=== PATIENT | female | born 2000 | race Caucasian/White ===

== ENCOUNTER 2019-03-29 18:48 | Inpatient (IN) | payer BC ==
[~2019-03-29] VITALS: Ht 160 cm; Wt 81.0 kg
[2019-03-29 19:27] VITALS: BP 101/50; PULSE 84; RESP 20
[2019-03-29] MEDS ORDERED: ACETAMINOPHEN 325 MG TAB PO PRN (20:00)
[2019-03-29] MEDS ORDERED: NACL 0.9% 3 ML SYG IV SCH (20:00)
[2019-03-29] MEDS ORDERED: BISACODYL (EC) 5 MG TAB PO PRN (20:00)
[2019-03-29] MEDS ORDERED: DOCUSATE SODIUM 100 MG CAP PO PRN (20:00)
[2019-03-29] MEDS ORDERED: ONDANSETRON 4 MG INJ IV PRN (20:00)
--- NOTE | 2019-03-29 20:08 | HP ---
Date/Time of Note Date/Time of Note DATE: 03/29/19 TIME: 20:08 Assessment/Plan VTE Prophylaxis SCD applied (from Ns): Yes Pharmacological prophylaxis: NA/contraindicated Pharm contraindication: low risk/ambulating Assessment/Plan Hospital Course This is a 19-year-old female who was originally admitted to the telemetry floor [facility]: #1 choledocholithiasis: Patient has transaminitis with hyperbilirubinemia. We will keep the patient n.p.o. except meds. IV fluid hydration with normal saline. Prophylactic antibiotics of Zosyn as ultrasound was concerning for possible cholecystitis. MRCP. Will consult GI . We will also consult general surgery . #2 abnormal gallbladder ultrasound: Concerning for possible cholecystitis. Patient is afebrile and has a normal white blood cell count. Nonetheless will put the patient on prophylactic antibiotics Zosyn. Will obtain an MRCP. Will consult general surgery. #3 obesity: We will check hemoglobin A 1C, lipid panel, TSH. #4 history of heartburn: We will initiate the patient on Pepcid #5 DVT GI prophylaxis: SCDs, no GI prophylaxis indicated Further treatment strategy will be implemented as per the clinical course. HPI/ROS Admit Date/Time Admit Date/Time Mar 29, 2019 at 19:06 Hx of Present Illness Chief complaint: Abdominal pain This is a 19-year-old female with no past medical history who presented to [facility] with complaints of epigastric pain for 2 weeks. Patient reported the pain was in the epigastric region and nonradiating and it was worsened by eating. She does report that she ate a lot of spicy food. She does report episodes of heartburn. She denies any nausea vomiting or fevers diarrhea. Patient's vitals on presentation at the transfer facility showed a temperature of 36.7 C heart rate of 102 blood pressure 116/89 respirations 18 SPO2 98% on room air. Pertinent laboratory findings please see chart for full details: White blood cell 6.8 hemoglobin 12.9 hematocrit 39.1 platelet count 295 BMP showed sodium 138/potassium 4/chloride 105/CO2 24/glucose 96/creatinine 0.69 bili total 3.4 ALT 377 AST 135 alk phos 126 lipase 32 beta-hCG was negative Right upper quadrant ultrasound: Cholelithiasis with mild dilatation of the common bile duct with a positive sonographic Berg sign reported. Constellation of findings frequently associated with acute cholecystitis. Allergies: NKDA Medications: None ROS const: As per HPI Eyes : No pain discharge or redness or change in visual acuity ENT: No pain, sore throat, congestion, congestion, dysphagia or discharge Respiratory: No shortness of breath, cough, sputum, wheezing, or pleuritic pain Cardiovascular: No chest pain, palpitation, PND, or edema GI : As per HPI Genitourinary: No dysuria, hematuria, flank pain , discharge or CVA tenderness Musculoskeletal: No joint pain, back pain, neck pain, restricted range of motion in neck or joints Skin: No rash, bruising or hives Neuro: No headache, dizziness, syncope, seizure, focal weakness Endocrine: No polyuria, polydipsia, temperature intolerance Psych: No hallucination, depression, anxiety or suicidal ideation PMH/Family/Social Past Medical History Medical History: no pertinent history Coded Allergies: No Known Allergies (Verified Allergy, Unknown, 03/29/19) Past Surgical History Past Surgical Hx: no surgical history Family History Significant Family History: no pertinent family hx Social History Alcohol Use: occasionally Smoking Status: Never smoker Exam/Review of Systems Vital Signs Vitals Vital Signs Date Temp Pulse Resp B/P (MAP) Pulse Ox O2 O2 Flow FiO2 Time Delivery Rate 03/29/19 98.3 84 20 101/50 100 Room Air 19:27 (67) Exam Exam General: Patient is a pleasant female currently lying in bed in no acute distress HEENT: Atraumatic, normocephalic. The pupils are equal, round and reactive. Extraocular motor are intact Neck: Supple with full range of motion. No rigidity or meningismus Chest: Nontender Lungs: Clear to auscultation bilaterally no crackles rales or wheezing Heart: Normal S1-S2, Regular rhythm and rate. No murmur, S3, or S4 Abdomen: Obese, soft , mildly tender at the epigastric region, nondistended , bowel sounds are present. No guarding no rebound tenderness , No masses or organomegaly. No costovertebral temporal angle mass Extremities: Normal to inspection, no edema no cyanosis Neurologic: Normal mental status, speech normal, cranial nerves II through XII are intact, motor and sensory are intact, no focal weakness CHAYA MANJARREZ Mar 29, 2019 20:08
[2019-03-29 20:18] VITALS: Ht 160 cm; Wt 81.0 kg
[2019-03-29] MEDS: HYDROmorphONE 0.5 MG/0.5 ML SYG IV PRN (21:04)
[2019-03-29] MEDS: PIPER-TAZO 3.375 GM IV (PMX) 100 ML IVPB SCH (21:17)
[2019-03-29] MEDS: SOD CHLORIDE 0.9% 1,000 ML IV SCH (21:17)
[2019-03-30] VITALS (17 sets, daily range): BP systolic 99–121; BP diastolic 50–70; PULSE 52–108; RESP 15–23
[2019-03-30] MEDS: PIPER-TAZO 3.375 GM IV (PMX) 100 ML IVPB SCH ×4 (01:30→18:24)
[2019-03-30] MEDS: HYDROmorphONE 0.5 MG/0.5 ML SYG IV PRN ×3 (02:42→20:00)
[2019-03-30] MEDS: SOD CHLORIDE 0.9% 1,000 ML IV SCH ×2 (07:00→12:21)
[2019-03-30] MEDS: FAMOTIDINE 20 MG TAB PO SCH ×2 (09:08→20:00)
--- NOTE | 2019-03-30 11:29 | PN ---
Date/Time of Note Date/Time of Note DATE: 03/30/19 TIME: 11:28 Assessment/Plan VTE Prophylaxis Risk score (from Nsg)>0 risk: 0 SCD applied (from Nsg): Yes Pharmacological prophylaxis: NA/contraindicated Pharm contraindication: low risk/ambulating Lines/Catheters IV Catheter Type (from Nrsg): Saline Lock Assessment/Plan Hospital Course SUBJECTIVE: Continues to have some abdominal pain. OBJECTIVE: Physical Exam General: Obese, 19 year-old female lying in bed in no apparent distress. HEENT: Normocephalic, atraumatic. Eyes: Anicteric sclerae, conjunctivae clear. ENT: Nasal septum midline, oral mucosa is dry. Neck supple, no JVD noticed. Respiratory: Bilaterally clear breath sounds. No use of accessory muscles of respiration. No adventitious breath sounds. Cardiovascular: S1, S2 heard. Regular rate and rhythm. Abdomen: Soft, nontender, and nondistended. Bowel sounds positive in all 4 quadrants. Genitourinary: Deferred. Extremities: No cyanosis, no clubbing, no edema. Peripheral pulses palpable. Neurologic: Cranial nerves II through XII grossly intact. The patient is awake, alert, and oriented. Skin: Normal skin turgor. No skin rashes. Labs & Vitals per chart ASSESSMENT & PLAN 19-year-old female with no significant comorbidities other than obesity who presented to an outside facility with chief complaint of abdominal pain with evidence of cholelithiasis and was transferred to [facility] for further treatment and evaluation because of insurance reasons. 1. Symptomatic cholelithiasis; choledocholithiasis per MRCP. Continue pain control. Continue n.p.o. Await ERCP. Antibiotics for any underlying infectious process. 2. Transaminitis w/o hyperbilirubinemia. Management as per #1. 3. Obesity. BMI more than 31kg/m. Fasting lipid panel satisfactory. Hemoglobin A1c within normal limits. Counselling for lifestyle modification. 4. Fluids, electrolytes, and nutrition. N.p.o. except for medications. IV fluids. 5. DVT prophylaxis. Bilateral SCDs. 6. Plan. Continue pain control. Await ERCP. Await surgical evaluation. The patient was seen in collaboration with Dr. Munguia. Result Diagram: 03/30/19 0615 03/30/19 0615 Results 24hrs Laboratory Tests Test 03/29/19 23:27 03/30/19 06:15 03/30/19 06:48 White Blood Count 7.1 7.2 Red Blood Count 4.29 4.62 Hemoglobin 11.3 L 12.0 Hematocrit 35.0 L 38.7 Mean Corpuscular Volume 81.6 83.8 Mean Corpuscular Hemoglobin 26.3 L 26.0 L Mean Corpuscular Hemoglobin Concent 32.3 31.0 L Red Cell Distribution Width 14.9 H 15.1 H Platelet Count 276 299 Mean Platelet Volume 10.8 H 11.1 H Immature Granulocytes % 0.300 0.300 Neutrophils % 55.8 55.1 Lymphocytes % 29.5 30.5 Monocytes % 10.2 10.2 Eosinophils % 3.5 3.2 Basophils % 0.7 0.7 Nucleated Red Blood Cells % 0.0 0.0 Immature Granulocytes # 0.020 0.020 Neutrophils # 3.9 4.0 Lymphocytes # 2.1 2.2 Monocytes # 0.7 0.7 Eosinophils # 0.3 0.2 Basophils # 0.1 0.1 Nucleated Red Blood Cells # 0.0 0.0 Sodium Level 142 142 Potassium Level 3.6 4.0 Chloride Level 106 108 Carbon Dioxide Level 26 27 Anion Gap 10 7 Blood Urea Nitrogen 5 L 6 L Creatinine 0.65 0.72 Est Glomerular Filtrat Rate mL/min > 60 > 60 Glucose Level 104 93 Calcium Level 8.4 8.6 Total Bilirubin 1.2 1.0 Direct Bilirubin 0.30 H 0.20 Indirect Bilirubin 0.9 0.8 Aspartate Amino Transf (AST/SGOT) 102 H 88 H Alanine Aminotransferase (ALT/SGPT) 327 H 297 H Alkaline Phosphatase 111 107 Total Protein 6.9 6.2 Albumin 3.6 3.5 Globulin 3.30 H 2.70 Albumin/Globulin Ratio 1.09 1.29 Hemoglobin A1c 5.1 Triglycerides Level 67 Cholesterol Level 140 LDL Cholesterol, Calculated 81 HDL Cholesterol 46 Cholesterol/HDL Ratio 3.0 Thyroid Stimulating Hormone (TSH) 1.690 Prothrombin Time 13.1 Prothrombin Time Ratio 1.0 INR International Normalized Ratio 0.98 Activated Partial Thromboplast Time 28.8 Exam/Review of Systems Exam Vitals Vital Signs Date Temp Pulse Resp B/P (MAP) Pulse Ox O2 O2 Flow FiO2 Time Delivery Rate 03/30/19 97.3 52 18 104/55 99 07:34 (71) 03/30/19 Room Air 04:21 Intake and Output 03/29/19 03/29/19 03/30/19 1515:00 23:00 07:00 IntakeIntake Total 800 ml 1100 ml BalanceBalance 800 ml 1100 ml Results Results 24hrs Laboratory Tests Test 03/29/19 23:27 03/30/19 06:15 03/30/19 06:48 White Blood Count 7.1 7.2 Red Blood Count 4.29 4.62 Hemoglobin 11.3 L 12.0 Hematocrit 35.0 L 38.7 Mean Corpuscular Volume 81.6 83.8 Mean Corpuscular Hemoglobin 26.3 L 26.0 L Mean Corpuscular Hemoglobin Concent 32.3 31.0 L Red Cell Distribution Width 14.9 H 15.1 H Platelet Count 276 299 Mean Platelet Volume 10.8 H 11.1 H Immature Granulocytes % 0.300 0.300 Neutrophils % 55.8 55.1 Lymphocytes % 29.5 30.5 Monocytes % 10.2 10.2 Eosinophils % 3.5 3.2 Basophils % 0.7 0.7 Nucleated Red Blood Cells % 0.0 0.0 Immature Granulocytes # 0.020 0.020 Neutrophils # 3.9 4.0 Lymphocytes # 2.1 2.2 Monocytes # 0.7 0.7 Eosinophils # 0.3 0.2 Basophils # 0.1 0.1 Nucleated Red Blood Cells # 0.0 0.0 Sodium Level 142 142 Potassium Level 3.6 4.0 Chloride Level 106 108 Carbon Dioxide Level 26 27 Anion Gap 10 7 Blood Urea Nitrogen 5 L 6 L Creatinine 0.65 0.72 Est Glomerular Filtrat Rate mL/min > 60 > 60 Glucose Level 104 93 Calcium Level 8.4 8.6 Total Bilirubin 1.2 1.0 Direct Bilirubin 0.30 H 0.20 Indirect Bilirubin 0.9 0.8 Aspartate Amino Transf (AST/SGOT) 102 H 88 H Alanine Aminotransferase (ALT/SGPT) 327 H 297 H Alkaline Phosphatase 111 107 Total Protein 6.9 6.2 Albumin 3.6 3.5 Globulin 3.30 H 2.70 Albumin/Globulin Ratio 1.09 1.29 Hemoglobin A1c 5.1 Triglycerides Level 67 Cholesterol Level 140 LDL Cholesterol, Calculated 81 HDL Cholesterol 46 Cholesterol/HDL Ratio 3.0 Thyroid Stimulating Hormone (TSH) 1.690 Prothrombin Time 13.1 Prothrombin Time Ratio 1.0 INR International Normalized Ratio 0.98 Activated Partial Thromboplast Time 28.8 Medications Medication Current Medications Sodium Chloride 1,000 ml @ 100 mls/hr Q10H IV Last administered on 03/29/19at 21:17; Admin Dose 100 MLS/HR; Start 03/29/19 at 21:00 IV Flush (NS 3 ml) 3 ml PER PROTOCOL IV ; Start 03/29/19 at 20:00 Ondansetron HCl (Zofran Inj) 4 mg Q6H PRN IV NAUSEA/VOMITING; Start 03/29/19 at 20:00 Acetaminophen (Tylenol Tab) 650 mg Q6H PRN PO .PAIN 1-3 OR TEMP; Start 03/29/19 at 20:00 Hydromorphone HCl (Dilaudid) 0.5 mg Q4H PRN IV .SEVERE PAIN 7-10 Last adm inistered on 03/30/19at 09:11; Admin Dose 0.5 MG; Start 03/29/19 at 20:00 Docusate Sodium (Colace) 100 mg Q12H PRN PO .CONSTIPATION; Start 03/29/19 at 20:00 Bisacodyl (Dulcolax) 5 mg DAILY PRN PO .CONSTIPATION; Start 03/29/19 at 20:00 Piperacillin Sod/ Tazobactam Sod 100 ml @ 200 mls/hr Q6 IVPB Last administered on 03/30/19at 05:37; Admin Dose 200 MLS/HR; Start 03/29/19 at 21:00 Famotidine (Pepcid) 20 mg BID PO Last administered on 03/30/19at 09:08; Admin Dose 20 MG; Start 03/30/19 at 09:00 RENNY KOWALSKI NP Mar 30, 2019 11:29
[2019-03-30] MEDS ORDERED: INDOMETHACIN 50 MG SUPP PR ONE (15:00)
--- NOTE | 2019-03-30 15:27 | PREAC ---
Date/Time of Note Date/Time of Note DATE: 03/30/19 TIME: 15: Anesthesia Eval and Record Evaluation Time Pre-Procedure Interview DATE: 03/30/19 TIME: 15: Age 19 Sex female NPO: 8 hrs Preoperative diagnosis CBD stone Planned procedure ERCP Past Medical History Past Medical History: Includes GI: Obesity Surgery & Anesthesia Issues No known issue Meds Anticoagulation: No Beta Luisa within 24 hr: No Reason Beta Luisa not given: Pt. not on B-Luisa Current Medications Sodium Chloride 1,000 ml @ 100 mls/hr Q10H IV Last administered on 03/30/19at 12:21; Admin Dose 100 MLS/HR; Start 03/29/19 at 21:00 IV Flush (NS 3 ml) 3 ml PER PROTOCOL IV ; Start 03/29/19 at 20:00 Ondansetron HCl (Zofran Inj) 4 mg Q6H PRN IV NAUSEA/VOMITING; Start 03/29/19 at 20:00 Acetaminophen (Tylenol Tab) 650 mg Q6H PRN PO .PAIN 1-3 OR TEMP; Start 03/29/19 at 20:00 Hydromorphone HCl (Dilaudid) 0.5 mg Q4H PRN IV .SEVERE PAIN 7-10 Last adminis tered on 03/30/19at 09:11; Admin Dose 0.5 MG; Start 03/29/19 at 20:00 Docusate Sodium (Colace) 100 mg Q12H PRN PO .CONSTIPATION; Start 03/29/19 at 20:00 Bisacodyl (Dulcolax) 5 mg DAILY PRN PO .CONSTIPATION; Start 03/29/19 at 20:00 Piperacillin Sod/ Tazobactam Sod 100 ml @ 200 mls/hr Q6 IVPB Last administered on 03/30/19at 12:21; Admin Dose 200 MLS/HR; Start 03/29/19 at 21:00 Famotidine (Pepcid) 20 mg BID PO Last administered on 03/30/19at 09:08; Admin Dose 20 MG; Start 03/30/19 at 09:00 Meds reviewed: Yes Allergies Coded Allergies: No Known Allergies (Verified Allergy, Unknown, 03/29/19) Allergies Reviewed: Yes Labs/Studies Labs Reviewed: Reviewed by anesthesiologist Result Diagram: 03/30/1915 03/30/19 0615 Laboratory Tests 03/30/19 06:15 test: Negative Pre-procedure Exam Last vitals Vital Signs Date Temp Pulse Resp B/P (MAP) Pulse Ox O2 O2 Flow FiO2 Time Delivery Rate 03/30/19 97.5 63 16 102/50 97 12:29 (67) 03/30/19 Room Air 04:21 Airway: Adequate mouth opening Mallampati: Mallampati II Teeth: Normal Lung: Normal Heart: Normal ASA Physical Status ASA physical status: 2 Emergency: None Planned Anesthetic General/MAC: ETT Planned Pain Management Parenteral pain med Pre-operative Attestations Prior to commencing anesthesia and surgery, the patient was re-evaluated, there was verification of: *The patient's identity *The results of appropriate recent lab work and preoperative vital signs *The above evaluation not changing prior to induction *Anesthetic plan, risk benefits, alternative and complications discussed with patient/family; questions answered; patient/family understands, accepts and wishes to proceed. YO HENRY MD Mar 30, 2019 15:27
[2019-03-30] MEDS ORDERED: NEOSTIGMINE 3 MG/3 ML SYRINGE ONE (15:34)
[2019-03-30] MEDS ORDERED: LIDOCAINE 2% (SDV) 5 ML INJ ONE (15:34)
[2019-03-30] MEDS ORDERED: GLYCOPYRROLATE 0.4 MG INJ ONE (15:34)
[2019-03-30] MEDS ORDERED: ROCURONIUM 50 MG INJ ONE (15:34)
[2019-03-30] MEDS ORDERED: SUCCINYLCHOLINE CHLORIDE 100 MG/5 ML SYG IV ONE (15:34)
[2019-03-30] MEDS ORDERED: PROPOFOL 20 ML ONE (15:34)
[2019-03-30] MEDS ORDERED: GLUCAGON 1 MG INJ ONE (16:15)
[2019-03-30] MEDS ORDERED: EPINEPHrine 0.1 MG/ML SYG ONE (16:26)
[2019-03-30] MEDS ORDERED: MEPERIDINE 25 MG INJ IV PRN (16:30)
[2019-03-30] MEDS ORDERED: METOCLOPRAMIDE 10 MG INJ IV PRN (16:30)
[2019-03-30] MEDS ORDERED: DIPHENHYDRAMINE 50 MG INJ IV PRN (16:30)
[2019-03-30] MEDS ORDERED: HYDROmorphONE 1 MG/5 ML IV SYRINGE IV PRN ×3 (16:30)
[2019-03-30] MEDS ORDERED: ONDANSETRON 4 MG INJ IV PRN (16:30)
[2019-03-30] MEDS ORDERED: MIDAZOLAM 1 MG/ML 2 ML INJ IV PRN (16:30)
[2019-03-30] MEDS ORDERED: FENTAnyl 50 MCG/ML VIAL IV PRN ×3 (16:30)
[2019-03-31] VITALS (13 sets, daily range): BP systolic 92–105; BP diastolic 48–68; PULSE 58–105; RESP 16–21
[2019-03-31] MEDS: PIPER-TAZO 3.375 GM IV (PMX) 100 ML IVPB SCH ×5 (00:26→23:47)
--- NOTE | 2019-03-31 01:44 | CONS ---
DATE OF ADMISSION: 03/29/2019 DATE OF CONSULTATION: 03/30/2019 HISTORY OF PRESENT ILLNESS: The patient is a 19-year-old female who was transferred from [facility] for abdominal pain and possible gallstone. At [facility], her bilirubin was 3.4. The patient also had abnormal LFT. The pain has been going on for the last 2 weeks, radiating to the back and shoulder. She was nauseous, no vomiting, no fever, no chills. Ultrasound showed a gallsto ne with dilated bile duct. REVIEW OF SYSTEM: Negative. ALLERGIES: NONE. SOCIAL HISTORY: She does not smoke or drink. PHYSICAL EXAMINATION: GENERAL: Well-built, well-nourished, not in distress. VITAL SIGNS: Stable. HEENT: Unremarkable. NECK: Supple, no thyromegaly, no lymphadenopathy. CARDIOVASCULAR: No murmur, gallop or click. LUNGS: Clear. ABDOMEN: Soft. Tenderness in the right upper quadrant. Bowel sounds are good. No mass in upper ab domen. EXTREMITIES: No edema. CENTRAL NERVOUS SYSTEM: Grossly within normal limits. LABORATORY DATA: INR is normal. CBC is stable. The patient's bilirubin is 1.2 to 1. Alkaline phos phatase is 111 to 107, SGOT and SGPT 102 and 327. MRCP showed a stone in the distal part of the bile duct with dilatation of the biliary system. IMPRESSION: 1. Biliary obstruction. 2. Abnormal LFT. 3. Gallstone. PLAN: Proceed with ERCP. All the complications of the procedure explained to the patient, understoo d and agreed. Mother also was by the side of the patient. Continue antibiotics in the interim. Dictated By: KENNY COOLEY/DANIAL Conf#: [id number] DID#: [id number] CC: YANE MOYA MD; KENNY AGUIRRE MD;*EndCC*
--- NOTE | 2019-03-31 02:29 | GILP ---
DATE OF PROCEDURE: PROCEDURE: 1. ERCP. 2. Sphincterotomy. 3. Removal of stone. 4. Injection of epinephrine. 5. Placement of stent. INDICATION: A 19-year-old female undergoing this procedure for impacted stone in ampulla. Bilirubin was high, started coming down after giving her antibiotic, continues to have right upper quadrant co licky pain. MRCP showed a stone in the ampullary area. The risk of the procedure, related and unrel ated complications, anesthetic risks, alternatives discussed. Informed consent was obtained. PROCEDURE IN DETAIL: Patient was brought to the OR room #2, intubated, placed in a prone position. Indocin suppository was given. After optimal sedation, the ERCP scope passed with much ease into the esophagus, advanced further down into stomach and duodenum. Minor ampulla identified, which appeare d normal. Major ampulla definitely had an impacted stone. Initially tried to selectively cannulate the bile duct, but deeper wire cannulation was not possible due to the impacted stone, so we did a pr ecut sphincterotomy. After doing precut sphincterotomy, deeper cannulation was successful. Cholangi ogram was obtained. There appeared to be 1 floating stone. Large sphincterotomy done. After doing sphincterotomy, a 12 mm balloon was used to sweep the bile duct. A cholesterol stone came out. Bile duct was swept 5 times. She had good flow biliary juice established and on the 6th the time when I did balloon sweeping it started oozing from the superior margin of the sphincterotomy site. So we ob served it. Bleeding had stopped, it was not significant. We sprayed it with 1:200,000 epinephrine. It really blanched out. No further bleeding was seen, deployed, a 10-Czech 5 cm stent successfully and after that excellent drainage was established. There was no dye left behind in the biliary syst em. No further bleeding was noted. Good tamponade was achieved with a 10-Czech 5 cm stent. Scope was removed with excellent patient tolerance. IMPRESSION: 1. Impacted stone in ampulla. 2. Precut sphincterotomy done. After that, selective biliary cannulation obtained. Larger sphincte rotomy done. 3. Cholesterol stone was removed. 4. There was minimal oozing. Successful hemostasis achieved with epinephrine spray. 5. Stent, 10-Czech 5 cm, successfully deployed. Absolute no bleeding was seen. Excellent drainage established. 6. Total fluoro time was 6 seconds. PLAN: To monitor LFT, CBC. Patient definitely needs laparoscopic cholecystectomy. Dictated By: KENNY COOLEY/DANIAL Conf#: [id number] DID#: [id number] CC: YANE MOYA MD; CHAYA MANJARREZ MD;*End*
[2019-03-31] MEDS: SOD CHLORIDE 0.9% 1,000 ML IV SCH (03:15)
[2019-03-31] MEDS: HYDROmorphONE 0.5 MG/0.5 ML SYG IV PRN ×5 (04:02→23:51)
[2019-03-31] MEDS: FAMOTIDINE 20 MG TAB PO SCH ×2 (08:38→19:53)
--- NOTE | 2019-03-31 08:50 | PAC ---
Date/Time of Note Date/Time of Note DATE: 03/31/19 TIME: 08:49 Post-Anesthesia Notes Post-Anesthesia Note Last documented vital signs Vital Signs Date Temp Pulse Resp B/P (MAP) Pulse Ox O2 O2 Flow FiO2 Time Delivery Rate 03/31/19 97.4 58 18 99/57 (71) 98 Room Air 07:30 Activity: WNL Respiratory function: WNL Cardiovascular function: WNL Mental status: Baseline Pain reasonably controlled: Yes Hydration appropriate: Yes Nausea/Vomiting absent: Yes YO HENRY MD Mar 31, 2019 08:49
[2019-03-31] MEDS ORDERED: MAGNESIUM SULFATE 2 GM/50 ML 50 ML IVPB ONE (10:30)
--- NOTE | 2019-03-31 12:51 | PREAC ---
Date/Time of Note Date/Time of Note DATE: 03/31/19 TIME: 12:48 Anesthesia Eval and Record Evaluation Time Pre-Procedure Interview DATE: 03/31/19 TIME: 12:48 Age 19 Sex female NPO: Other (at 0930 today, had one "small bite of jello," one cup cranberry jui ce, and one cup mint tea, Dr Joanne charlton ) Preoperative diagnosis choledocholelithiasis Planned procedure laparoscopic possible open cholecystectomy Past Medical History Past Medical History: Includes Hepatic: Other (abnormal LFTs) GI: GERD (no symptoms today), Obesity (BMI 31.6), Other (gallstones, biliary obstrution s/p ERCP 03/30/19) Surgery & Anesthesia Issues No known issue Meds Anticoagulation: No Beta Luisa within 24 hr: No Reason Beta Luisa not given: Pt. not on B-Luisa Current Medications Sodium Chloride 1,000 ml @ 100 mls/hr Q10H IV Last administered on 03/31/19at 03:15; Admin Dose 100 MLS/HR; Start 03/29/19 at 21:00 IV Flush (NS 3 ml) 3 ml PER PROTOCOL IV ; Start 03/29/19 at 20:00 Ondansetron HCl (Zofran Inj) 4 mg Q6H PRN IV NAUSEA/VOMITING; Start 03/29/19 at 20:00 Acetaminophen (Tylenol Tab) 650 mg Q6H PRN PO .PAIN 1-3 OR TEMP; Start 03/29/19 at 20:00 Hydromorphone HCl (Dilaudid) 0.5 mg Q4H PRN IV .SEVERE PAIN 7-10 Last administered on 03/31/19at 08:39; Admin Dose 0.5 MG; Start 03/29/19 at 20:00 Docusate Sodium (Colace) 100 mg Q12H PRN PO .CONSTIPATION; Start 03/29/19 at 20:00 Bisacodyl (Dulcolax) 5 mg DAILY PRN PO .CONSTIPATION; Start 03/29/19 at 20:00 Piperacillin Sod/ Tazobactam Sod 100 ml @ 200 mls/hr Q6 IVPB Last administered on 03/31/19at 05:46; Admin Dose 200 MLS/HR; Start 03/29/19 at 21:00 Famotidine (Pepcid) 20 mg BID PO Last administered on 03/31/19at 08:38; Admin Dose 20 MG; Start 03/30/19 at 09:00 Meds reviewed: Yes Allergies Coded Allergies: No Known Allergies (Verified Allergy, Unknown, 03/29/19) Allergies Reviewed: Yes Labs/Studies Labs Reviewed: Reviewed by anesthesiologist Result Diagram: 03/31/19 0639 03/31/19 0639 Laboratory Tests 03/31/19 06:39 test: Negative (03/29/19 HCG NEGATIVE, REVIEWED from Transfer documents from [facility] ) Pre-procedure Exam Last vitals Vital Signs Date Temp Pulse Resp B/P (MAP) Pulse Ox O2 O2 Flow FiO2 Time Delivery Rate 03/31/19 97.4 58 18 99/57 (71) 98 Room Air 07:30 Airway: Adequate mouth opening, Adequate thyromental dist Mallampati: Mallampati II Teeth: Normal Lung: Normal Heart: Normal ASA Physical Status ASA physical status: 2 Emergency: E Planned Anesthetic General/MAC: ETT Nerve block: TAP (bilateral) Planned Pain Management Single shot nerve block, Parenteral pain med, Local by surgeon Pre-operative Attestations Prior to commencing anesthesia and surgery, the patient was re-evaluated, there was verification of: *The patient's identity *The results of appropriate recent lab work and preoperative vital signs *The above evaluation not changing prior to induction *Anesthetic plan, risk benefits, alternative and complications discussed with patient/family; questions answered; patient/family understands, accepts and wishes to proceed. JOSE DE JESUS BENSON Mar 31, 2019 12:51
[2019-03-31] MEDS ORDERED: LIDOCAINE 1% (MPF) 30 ML INJ ONE (13:41)
[2019-03-31] MEDS ORDERED: BUPIVACAINE 0.5%/EPI (SDV) 30 ML INJ ONE (13:41)
--- NOTE | 2019-03-31 14:27 | CONS ---
Assessment/Plan Assessment/Plan Assessment/Plan (Daily) Symptomatic cholelithiasis and choledocholithiasis. Status post ERCP. Patient needs laparoscopic cholecystectomy to prevent further attack of choledocholithiasis.We discussed risks and benefits were discussed possible side effects, possible complications including but not limited to bleeding, infe ction, injury to other organs, anesthesia complication, patient understood risk and benefits and wished to proceed. Consultation Date/Type/Reason Admit Date/Time Mar 29, 2019 at 19:06 Date of Consultation: Mar 31, 2019 Type of Consult Surgical Reason for Consultation Gallstones Date/Time of Note DATE: 03/31/19 TIME: 14:24 Hx of Present Illness 19-year-old otherwise healthy female presented to emergency room complaining of epigastric pain radiating to her back. She had a previous attack similar to this 1 but less severe approximately 2 weeks ago. She did not seek any medical attention for that. In the emergency room she was diagnosed with a gallstone at dilated bile ducts. MRCP was performed that showed shadow in the distal common bile duct. Her LFTs were mildly elevated. She underwent ERCP yesterday with stone extraction. The surgical consultation was requested regarding the necessity of cholecystectomy. Constitutional: no complaints, improved Eyes: no complaints ENT: no complaints Respiratory: no complaints Cardiovascular: no complaints Gastrointestinal: pain Genitourinary: no complaints Musculoskeletal: no complaints Skin: no complaints Neurologic: no complaints Endocrine: no complaints Lymphatic: no complaints Psychological: no complaints, nl mood/affect Immunologic: no complaints Past Medical History Medical History: no pertinent history Medications Current Medications Sodium Chloride 1,000 ml @ 100 mls/hr Q10H IV Last administered on 03/31/19at 03:15; Admin Dose 100 MLS/HR; Start 03/29/19 at 21:00 IV Flush (NS 3 ml) 3 ml PER PROTOCOL IV ; Start 03/29/19 at 20:00 Ondansetron HCl (Zofran Inj) 4 mg Q6H PRN IV NAUSEA/VOMITING; Start 03/29/19 at 20:00 Acetaminophen (Tylenol Tab) 650 mg Q6H PRN PO .PAIN 1-3 OR TEMP; Start 03/29/19 at 20:00 Hydromorphone HCl (Dilaudid) 0.5 mg Q4H PRN IV .SEVERE PAIN 7-10 Last administered on 03/31/19at 12:50; Admin Dose 0.5 MG; Start 03/29/19 at 20:00 Docusate Sodium (Colace) 100 mg Q12H PRN PO .CONSTIPATION; Start 03/29/19 at 20:00 Bisacodyl (Dulcolax) 5 mg DAILY PRN PO .CONSTIPATION; Start 03/29/19 at 20:00 Piperacillin Sod/ Tazobactam Sod 100 ml @ 200 mls/hr Q6 IVPB Last administered on 03/31/19at 13:24; Admin Dose 200 MLS/HR; Start 03/29/19 at 21:00 Famotidine (Pepcid) 20 mg BID PO Last administered on 03/31/19at 08:38; Admin Dose 20 MG; Start 03/30/19 at 09:00 Allergies: Coded Allergies: No Known Allergies (Verified Allergy, Unknown, 03/29/19) Past Surgical History Past Surgical Hx: no surgical history Family History Significant Family History: other (Father has gallstones) Social History Alcohol Use: occasionally Smoking Status: Never smoker Exam/Review of Systems Exam Vitals Vital Signs Date Temp Pulse Resp B/P (MAP) Pulse Ox O2 O2 Flow FiO2 Time Delivery Rate 03/31/19 97.4 58 18 99/57 (71) 98 Room Air 07:30 Intake and Output 03/30/19 03/30/19 03/31/19 1515:00 23:00 07:00 IntakeIntake Total 300 ml 100 ml 1100 ml BalanceBalance 300 ml 100 ml 1100 ml Constitutional: alert, oriented, well developed Psych: no complaints, nl mood/affect Head: normocephalic, atraumatic Eyes: nl conjunctiva, EOMI, nl lids, nl sclera, PERRL ENMT: nl external ears & nose, nl lips & teeth, nl nasal mucosa & septum Neck: supple, non-tender Respiratory: clear to auscultation, normal air movement Cardiovascular: regular rate and rhythm, nl pulses Gastrointestinal: soft, nl liver, spleen, non-tender Musculoskeletal: nl extremities to inspection, nl gait and stance Extremities: normal pulses Neurological: POWER DISTRIBUTOR II-XII intact, nl mental status, nl speech, nl strength Skin: nl turgor; No rash or lesions Lymph: nl lymph nodes Results Result Diagram: 03/31/1939 03/31/19 0639 Results 24hrs Laboratory Tests Test 03/31/19 06:38 03/31/19 06:39 Serum HCG, Qualitative NEGATIVE White Blood Count 8.8 # Red Blood Count 4.54 Hemoglobin 12.0 Hematocrit 37.9 Mean Corpuscular Volume 83.5 Mean Corpuscular Hemoglobin 26.4 L Mean Corpuscular Hemoglobin Concent 31.7 L Red Cell Distribution Width 15.1 H Platelet Count 267 Mean Platelet Volume 11.0 H Immature Granulocytes % 0.300 Neutrophils % 67.8 Lymphocytes % 21.7 Monocytes % 7.2 Eosinophils % 2.4 Basophils % 0.6 Nucleated Red Blood Cells % 0.0 Immature Granulocytes # 0.030 Neutrophils # 6.0 Lymphocytes # 1.9 Monocytes # 0.6 Eosinophils # 0.2 Basophils # 0.1 Nucleated Red Blood Cells # 0.0 Sodium Level 144 Potassium Level 4.2 Chloride Level 109 Carbon Dioxide Level 26 Anion Gap 9 Blood Urea Nitrogen 4 L Creatinine 0.67 Est Glomerular Filtrat Rate mL/min > 60 Glucose Level 90 Calcium Level 8.8 Phosphorus Level 3.7 Magnesium Level 1.6 L Total Bilirubin 0.7 Direct Bilirubin 0.00 # Indirect Bilirubin 0.7 Aspartate Amino Transf (AST/SGOT) 54 H Alanine Aminotransferase (ALT/SGPT) 219 H Alkaline Phosphatase 107 Total Protein 6.6 Albumin 3.5 Globulin 3.10 Albumin/Globulin Ratio 1.12 Medications Medication Current Medications Sodium Chloride 1,000 ml @ 100 mls/hr Q10H IV Last administered on 03/31/19at 03:15; Admin Dose 100 MLS/HR; Start 03/29/19 at 21:00 IV Flush (NS 3 ml) 3 ml PER PROTOCOL IV ; Start 03/29/19 at 20:00 Ondansetron HCl (Zofran Inj) 4 mg Q6H PRN IV NAUSEA/VOMITING; Start 03/29/19 at 20:00 Acetaminophen (Tylenol Tab) 650 mg Q6H PRN PO .PAIN 1-3 OR TEMP; Start 03/29/19 at 20:00 Hydromorphone HCl (Dilaudid) 0.5 mg Q4H PRN IV .SEVERE PAIN 7-10 Last administered on 03/31/19at 12:50; Admin Dose 0.5 MG; Start 03/29/19 at 20:00 Docusate Sodium (Colace) 100 mg Q12H PRN PO .CONSTIPATION; Start 03/29/19 at 20:00 Bisacodyl (Dulcolax) 5 mg DAILY PRN PO .CONSTIPATION; Start 03/29/19 at 20:00 Piperacillin Sod/ Tazobactam Sod 100 ml @ 200 mls/hr Q6 IVPB Last administered on 03/31/19at 13:24; Admin Dose 200 MLS/HR; Start 03/29/19 at 21:00 Famotidine (Pepcid) 20 mg BID PO Last administered on 03/31/19at 08:38; Admin Dose 20 MG; Start 03/30/19 at 09:00 JARROD POSADA MD Mar 31, 2019 14:27
[2019-03-31] MEDS ORDERED: SUCCINYLCHOLINE CHLORIDE 100 MG/5 ML SYG IV ONE (15:13)
[2019-03-31] MEDS ORDERED: ROPIVACAINE 0.5 % 30 ML VIAL ONE (15:14)
[2019-03-31] MEDS ORDERED: METOCLOPRAMIDE 10 MG INJ ONE (15:26)
[2019-03-31] MEDS ORDERED: KETOROLAC 30 MG INJ ONE (15:26)
[2019-03-31] MEDS ORDERED: PROPOFOL 20 ML ONE (15:26)
[2019-03-31] MEDS ORDERED: ROCURONIUM 50 MG INJ ONE (15:26)
[2019-03-31] MEDS ORDERED: ONDANSETRON 4 MG INJ ONE (15:26)
[2019-03-31] MEDS ORDERED: NEOSTIGMINE 3 MG/3 ML SYRINGE ONE (15:27)
[2019-03-31] MEDS ORDERED: GLYCOPYRROLATE 0.4 MG INJ ONE (15:27)
[2019-03-31] MEDS ORDERED: PHENYLephrine (100 MCG/ML) 10ML SYG ONE (15:32)
[2019-03-31] MEDS ORDERED: ACETAMINOPHEN 325 MG TAB PO PRN (16:00)
[2019-03-31] MEDS ORDERED: ONDANSETRON 4 MG INJ IV PRN (16:00)
[2019-03-31] MEDS ORDERED: DIPHENHYDRAMINE 50 MG INJ IV PRN (16:00)
[2019-03-31] MEDS ORDERED: KETOROLAC 30 MG INJ IV PRN (16:00)
[2019-03-31] MEDS ORDERED: morphine 2 MG INJ IV PRN (16:00)
[2019-03-31] MEDS ORDERED: METOCLOPRAMIDE 10 MG INJ IV PRN (16:00)
--- NOTE | 2019-03-31 16:01 | OPR ---
Date/Time of Note Date/Time of Note DATE: 03/31/19 TIME: 15:58 Operative Report Procedure Date: Mar 31, 2019 Preoperative Diagnosis Cholelithiasis. Status post ERCP and extraction of the common bile duct stone. Postoperative Diagnosis The same. Operation/Procedure Performed Laparoscopic cholecystectomy with fluorescent cholangiogram. Surgeon see signature line Evaluation Advisor None Anesthesia Type: general Anesthesiologist: LIZ SALAZAR MD Estimated Blood Loss: 0 - 10 ml's Transfusion none Specimen Gallbladder Grafts/Implants none Complications none Pt Condition Post Procedure: stable Disposition: PACU Indications 19-year-old female admitted through emergency room with the symptomatic common bile duct stones and gallbladder stones. ERCP was performed yesterday and common bile duct was cleared. Patient was elected to undergo laparoscopic cholecystectomy. Procedure Description The risks, benefits and alternatives of the procedure were discussed with the patient and informed consent was obtained. We discussed with the patient and the family possibility of the bleeding, infection, injury to other organs, bile ducts injury, retained stones and necessity of the ERCP. OPERATIVE PROCEDURE: The patient was brought to the operating room and placed supine. IV antibiotics were given. Venodynes were placed to both lower extremities. General endotracheal anesthesia was achieved. The abdomen was prepped and draped in a sterile fashion. 0.25% Marcaine with epinephrine was used for local anesthesia. A small infraumbilical incision was made and a Veress needle inserted. Intraperitoneal position was confirmed using the saline drop test. Carbon dioxide pneumoperitoneum was achieved with a good filling pressure to 15 mmHg. The 30-degree 5 mm video laparoscope was inserted through a 5-mm trocar placed in the right paramedian position just next to umbilicus. There was no evidence of injury after Veress needle and trocar insertion. Additional trocars were placed, a 12-mm subxiphoid trocar, and two 5-mm trocars at the right upper quadrant. The gallbladder was grasped at the fundus and elevated cephalad. The area at Calot's triangle was dissected using blunt and electrocautery dissection, and critical view was obtained. ICG imaging confirmed the correct identification of the biliary ducts. Clip placed across the cystic duct and artery. The cystic duct was clipped additionally and then divided. The cystic artery was clipped x2 additionally. The gallbladder was dissected off the liver using electrocautery dissection and removed using an EndoCatch bag. The trocars were removed under direct visualization and no bleeding seen at the trocar sites. The pneumoperitoneum was reduced and the subxiphoid and umbilical trocar sites closed with 0 Vicryl to reapproximate the fascia. The trocar sites were reapproximated with 4-0 Monocryl sutures. Steri-Strips and sterile dress ings were applied. The sponge and instrument counts were reported as correct x2. Estimated blood loss was 5 cc. The patient was woken from anesthesia, extubated, and transferred to the recovery room in stable condition. By the end of the procedure, the instrument and sponge counts were correct x2. STATEMENT OF PRESENCE: Dr. Conrad was present for the entire case. JARROD CONRAD MD Mar 31, 2019 16:01
[2019-03-31] MEDS ORDERED: FENTAnyl 50 MCG/ML VIAL ONE (16:05)
--- NOTE | 2019-03-31 16:46 | PN ---
Date/Time of Note Date/Time of Note DATE: 03/31/19 TIME: 16:45 Assessment/Plan VTE Prophylaxis Risk score (from Nsg)>0 risk: 0 SCD applied (from Nsg): Yes Pharmacological prophylaxis: NA/contraindicated Pharm contraindication: low risk/ambulating Lines/Catheters IV Catheter Type (from Nrsg): Saline Lock Assessment/Plan Hospital Course SUBJECTIVE: S/P lap cholecystectomy. In the PACU. OBJECTIVE: Physical Exam General: Obese, 19 year-old female lying in bed in no apparent distress. HEENT: Normocephalic, atraumatic. Eyes: Anicteric sclerae, conjunctivae clear. ENT: Nasal septum midline, oral mucosa is dry. Neck supple, no JVD noticed. Respiratory: Bilaterally clear breath sounds. No use of accessory muscles of respiration. No adventitious breath sounds. Cardiovascular: S1, S2 heard. Regular rate and rhythm. Abdomen: Soft and nondistended. Glue over laparoscopic incision sites. Bowel sounds positive in all 4 quadrants. Genitourinary: Deferred. Extremities: No cyanosis, no clubbing, no edema. Peripheral pulses palpable. Neurologic: Cranial nerves II through XII grossly intact. The patient is awake, alert, and oriented. Skin: Normal skin turgor. No skin rashes. Labs & Vitals per chart ASSESSMENT & PLAN 19-year-old female with no significant comorbidities other than obesity who presented to an outside facility with chief complaint of abdominal pain with evidence of cholelithiasis and was transferred to [facility] for further treatment and evaluation because of insurance reasons. 1. Symptomatic cholelithiasis; choledocholithiasis. Status post ERCP, sphincterotomy, removal of stone, and placement of stent on 03/30/2019. Status post laparoscopic cholecystectomy on 03/31/2019. Advancement of diet as per general surgery. Encourage frequent ambulation and use of incentive spirometry. 2. Transaminitis w/o hyperbilirubinemia. Management as per #1. 3. Obesity. BMI more than 31kg/m. Fasting lipid panel satisfactory. Hemoglobin A1c within normal limits. Counselling for lifestyle modification. 4. Fluids, electrolytes, and nutrition. Initiation and advancement of diet as per general surgery. IV fluids. 5. DVT prophylaxis. Bilateral SCDs. 6. Plan. Continue pain control. Initiation and advancement of diet as per general surgery. Encourage frequent ambulation and use of incentive spirometry. The patient was seen in collaboration with Dr. Munguia. Result Diagram: 03/31/19 0639 03/31/19 0639 Results 24hrs Laboratory Tests Test 03/31/19 06:38 03/31/19 06:39 Serum HCG, Qualitative NEGATIVE White Blood Count 8.8 # Red Blood Count 4.54 Hemoglobin 12.0 Hematocrit 37.9 Mean Corpuscular Volume 83.5 Mean Corpuscular Hemoglobin 26.4 L Mean Corpuscular Hemoglobin Concent 31.7 L Red Cell Distribution Width 15.1 H Platelet Count 267 Mean Platelet Volume 11.0 H Immature Granulocytes % 0.300 Neutrophils % 67.8 Lymphocytes % 21.7 Monocytes % 7.2 Eosinophils % 2.4 Basophils % 0.6 Nucleated Red Blood Cells % 0.0 Immature Granulocytes # 0.030 Neutrophils # 6.0 Lymphocytes # 1.9 Monocytes # 0.6 Eosinophils # 0.2 Basophils # 0.1 Nucleated Red Blood Cells # 0.0 Sodium Level 144 Potassium Level 4.2 Chloride Level 109 Carbon Dioxide Level 26 Anion Gap 9 Blood Urea Nitrogen 4 L Creatinine 0.67 Est Glomerular Filtrat Rate mL/min > 60 Glucose Level 90 Calcium Level 8.8 Phosphorus Level 3.7 Magnesium Level 1.6 L Total Bilirubin 0.7 Direct Bilirubin 0.00 # Indirect Bilirubin 0.7 Aspartate Amino Transf (AST/SGOT) 54 H Alanine Aminotransferase (ALT/SGPT) 219 H Alkaline Phosphatase 107 Total Protein 6.6 Albumin 3.5 Globulin 3.10 Albumin/Globulin Ratio 1.12 Exam/Review of Systems Exam Vitals Vital Signs Date Temp Pulse Resp B/P (MAP) Pulse Ox O2 O2 Flow FiO2 Time Delivery Rate 03/31/19 66 20 103/50 98 Room Air 16:30 (67) 03/31/19 98.2 16:12 Intake and Output 03/30/19 03/30/19 03/31/19 1515:00 23:00 07:00 IntakeIntake Total 300 ml 100 ml 1100 ml BalanceBalance 300 ml 100 ml 1100 ml Results Results 24hrs Laboratory Tests Test 03/31/19 06:38 03/31/19 06:39 Serum HCG, Qualitative NEGATIVE White Blood Count 8.8 # Red Blood Count 4.54 Hemoglobin 12.0 Hematocrit 37.9 Mean Corpuscular Volume 83.5 Mean Corpuscular Hemoglobin 26.4 L Mean Corpuscular Hemoglobin Concent 31.7 L Red Cell Distribution Width 15.1 H Platelet Count 267 Mean Platelet Volume 11.0 H Immature Granulocytes % 0.300 Neutrophils % 67.8 Lymphocytes % 21.7 Monocytes % 7.2 Eosinophils % 2.4 Basophils % 0.6 Nucleated Red Blood Cells % 0.0 Immature Granulocytes # 0.030 Neutrophils # 6.0 Lymphocytes # 1.9 Monocytes # 0.6 Eosinophils # 0.2 Basophils # 0.1 Nucleated Red Blood Cells # 0.0 Sodium Level 144 Potassium Level 4.2 Chloride Level 109 Carbon Dioxide Level 26 Anion Gap 9 Blood Urea Nitrogen 4 L Creatinine 0.67 Est Glomerular Filtrat Rate mL/min > 60 Glucose Level 90 Calcium Level 8.8 Phosphorus Level 3.7 Magnesium Level 1.6 L Total Bilirubin 0.7 Direct Bilirubin 0.00 # Indirect Bilirubin 0.7 Aspartate Amino Transf (AST/SGOT) 54 H Alanine Aminotransferase (ALT/SGPT) 219 H Alkaline Phosphatase 107 Total Protein 6.6 Albumin 3.5 Globulin 3.10 Albumin/Globulin Ratio 1.12 Medications Medication Current Medications IV Flush (NS 3 ml) 3 ml PER PROTOCOL IV ; Start 03/29/19 at 20:00 Ondansetron HCl (Zofran Inj) 4 mg Q6H PRN IV NAUSEA/VOMITING; Start 03/29/19 at 20:00 Acetaminophen (Tylenol Tab) 650 mg Q6H PRN PO .PAIN 1-3 OR TEMP; Start 03/29/19 at 20:00 Hydromorphone HCl (Dilaudid) 0.5 mg Q4H PRN IV .SEVERE PAIN 7-10 Last administered on 03/31/19at 12:50; Admin Dose 0.5 MG; Start 03/29/19 at 20:00 Docusate Sodium (Colace) 100 mg Q12H PRN PO .CONSTIPATION; Start 03/29/19 at 20:00 Bisacodyl (Dulcolax) 5 mg DAILY PRN PO .CONSTIPATION; Start 03/29/19 at 20:00 Piperacillin Sod/ Tazobactam Sod 100 ml @ 200 mls/hr Q6 IVPB Last administered on 03/31/19at 13:24; Admin Dose 200 MLS/HR; Start 03/29/19 at 21:00 Famotidine (Pepcid) 20 mg BID PO Last administered on 03/31/19at 08:38; Admin Dose 20 MG; Start 03/30/19 at 09:00 Metoclopramide HCl (Reglan) 10 mg Q6H PRN IV NAUSEA AND/OR VOMITING; Start 03/31/19 at 16:00 Ketorolac Tromethamine (Toradol) 30 mg Q6H PRN IV PAIN; Start 03/31/19 at 16:00; Stop 04/03/19 at 15:59 Morphine Sulfate (morphine) 2 mg Q2H PRN IV BREAKTHROUGH PAIN; Start 03/31/19 at 16:00 Ibuprofen (Motrin) 600 mg Q6H PRN PO PAIN LEVEL 1-5; Start 04/01/19 at 16:00 Acetaminophen/ Hydrocodone Bitart ([place] (5/325)) 1 tab Q6H PRN PO PAIN LEVEL 6-10; Start 03/31/19 at 16:00 Diphenhydramine HCl (Benadryl) 25 mg Q6H PRN IV PRURITUS; Start 03/31/19 at 16:00 Potassium Chloride/Dextrose/ Sod Cl 1,000 ml @ 100 mls/hr Q10H IV ; Start 03/31/19 at 15:57 RENNY KOWALSKI NP Mar 31, 2019 16:46
--- NOTE | 2019-03-31 17:37 | CONS ---
Assessment/Plan Assessment/Plan Assessment/Plan (Daily) IMPRESSION: 1. Biliary obstruction. Status post sphincterotomy removal of the stone and placement of stent 2. Abnormal LFT. 3. Gallstone status post laparoscopic cholecystectomy Plan Continue postoperative care We will remove the stent after 3 months Discussed with the patient before cholecystectomy Consultation Date/Type/Reason Admit Date/Time Mar 29, 2019 at 19:06 Initial Consult Date 03/31/19 Date/Time of Note DATE: 03/31/19 TIME: 17:36 24 HR Interval Summary Constitutional: no complaints, improved Exam/Review of Systems Exam Vitals Vital Signs Date Temp Pulse Resp B/P (MAP) Pulse Ox O2 O2 Flow FiO2 Time Delivery Rate 03/31/19 72 21 105/68 96 Room Air 16:55 (80) 03/31/19 98.0 16:45 Intake and Output 03/30/19 03/30/19 03/31/19 1515:00 23:00 07:00 IntakeIntake Total 300 ml 100 ml 1100 ml BalanceBalance 300 ml 100 ml 1100 ml Results Result Diagram: 03/31/19 0639 03/31/19 0639 Results 24hrs Laboratory Tests Test 03/31/19 06:38 03/31/19 06:39 Serum HCG, Qualitative NEGATIVE White Blood Count 8.8 # Red Blood Count 4.54 Hemoglobin 12.0 Hematocrit 37.9 Mean Corpuscular Volume 83.5 Mean Corpuscular Hemoglobin 26.4 L Mean Corpuscular Hemoglobin Concent 31.7 L Red Cell Distribution Width 15.1 H Platelet Count 267 Mean Platelet Volume 11.0 H Immature Granulocytes % 0.300 Neutrophils % 67.8 Lymphocytes % 21.7 Monocytes % 7.2 Eosinophils % 2.4 Basophils % 0.6 Nucleated Red Blood Cells % 0.0 Immature Granulocytes # 0.030 Neutrophils # 6.0 Lymphocytes # 1.9 Monocytes # 0.6 Eosinophils # 0.2 Basophils # 0.1 Nucleated Red Blood Cells # 0.0 Sodium Level 144 Potassium Level 4.2 Chloride Level 109 Carbon Dioxide Level 26 Anion Gap 9 Blood Urea Nitrogen 4 L Creatinine 0.67 Est Glomerular Filtrat Rate mL/min > 60 Glucose Level 90 Calcium Level 8.8 Phosphorus Level 3.7 Magnesium Level 1.6 L Total Bilirubin 0.7 Direct Bilirubin 0.00 # Indirect Bilirubin 0.7 Aspartate Amino Transf (AST/SGOT) 54 H Alanine Aminotransferase (ALT/SGPT) 219 H Alkaline Phosphatase 107 Total Protein 6.6 Albumin 3.5 Globulin 3.10 Albumin/Globulin Ratio 1.12 Medications Medication Current Medications IV Flush (NS 3 ml) 3 ml PER PROTOCOL IV ; Start 03/29/19 at 20:00 Ondansetron HCl (Zofran Inj) 4 mg Q6H PRN IV NAUSEA/VOMITING; Start 03/29/19 at 20:00 Acetaminophen (Tylenol Tab) 650 mg Q6H PRN PO .PAIN 1-3 OR TEMP; Start 03/29/19 at 20:00 Hydromorphone HCl (Dilaudid) 0.5 mg Q4H PRN IV .SEVERE PAIN 7-10 Last administered on 03/31/19at 12:50; Admin Dose 0.5 MG; Start 03/29/19 at 20:00 Docusate Sodium (Colace) 100 mg Q12H PRN PO .CONSTIPATION; Start 03/29/19 at 20:00 Bisacodyl (Dulcolax) 5 mg DAILY PRN PO .CONSTIPATION; Start 03/29/19 at 20:00 Piperacillin Sod/ Tazobactam Sod 100 ml @ 200 mls/hr Q6 IVPB Last administered on 03/31/19at 13:24; Admin Dose 200 MLS/HR; Start 03/29/19 at 21:00 Famotidine (Pepcid) 20 mg BID PO Last administered on 03/31/19at 08:38; Admin Dose 20 MG; Start 03/30/19 at 09:00 Metoclopramide HCl (Reglan) 10 mg Q6H PRN IV NAUSEA AND/OR VOMITING; Start 03/31/19 at 16:00 Ketorolac Tromethamine (Toradol) 30 mg Q6H PRN IV PAIN; Start 03/31/19 at 16:00; Stop 04/03/19 at 15:59 Morphine Sulfate (morphine) 2 mg Q2H PRN IV BREAKTHROUGH PAIN; Start 03/31/19 at 16:00 Ibuprofen (Motrin) 600 mg Q6H PRN PO PAIN LEVEL 1-5; Start 04/01/19 at 16:00 Acetaminophen/ Hydrocodone Bitart ([place] (5/325)) 1 tab Q6H PRN PO PAIN LEVEL 6-10; Start 03/31/19 at 16:00 Diphenhydramine HCl (Benadryl) 25 mg Q6H PRN IV PRURITUS; Start 03/31/19 at 16:00 Potassium Chloride/Dextrose/ Sod Cl 1,000 ml @ 100 mls/hr Q10H IV ; Start 03/31/19 at 15:57 KENNY AGUIRRE MD Mar 31, 2019 17:37
[2019-03-31] MEDS: D5W-0.45 NACL + KCL 20 MEQ 1,000 ML IV SCH (19:53)
[2019-04-01 02:05] VITALS: BP 108/58; PULSE 79; RESP 18
[2019-04-01] MEDS: PIPER-TAZO 3.375 GM IV (PMX) 100 ML IVPB SCH ×2 (05:19→11:47)
[2019-04-01] MEDS: D5W-0.45 NACL + KCL 20 MEQ 1,000 ML IV SCH ×2 (05:19→11:57)
[2019-04-01] MEDS: HYDROCODONE/APAP (5/325) TAB PO PRN ×2 (05:20→11:47)
[2019-04-01 07:21] VITALS: BP 105/57; PULSE 80; RESP 16
--- NOTE | 2019-04-01 08:29 | PAC ---
Date/Time of Note Date/Time of Note DATE: 04/01/19 TIME: 08:29 Post-Anesthesia Notes Post-Anesthesia Note Last documented vital signs Vital Signs Date Temp Pulse Resp B/P (MAP) Pulse Ox O2 O2 Flow FiO2 Time Delivery Rate 04/01/19 98.6 80 16 105/57 96 Room Air 07:21 (73) Activity: WNL Respiratory function: WNL Cardiovascular function: WNL Mental status: Baseline Pain reasonably controlled: Yes Hydration appropriate: Yes Nausea/Vomiting absent: No LIZ SALAZAR MD Apr 01, 2019 08:29
[2019-04-01] MEDS: FAMOTIDINE 20 MG TAB PO SCH (08:38)
--- NOTE | 2019-04-01 11:41 | PDOCDIS ---
Discharge Instructions CONDITION [id number] Patient Condition: [id number] Stable HOME CARE INSTRUCTIONS: [id number] Diet Instructions: [id number] Regular FOLLOW UP/APPOINTMENTS Follow-up Plan 1. Karsten Conrad MD Specialty: General Surgery Office Address [address] [place] [address] Office 2. Jim Russ MD Specialty: Gastroenterology Office Address [address] [place] [address] Office OTHER ORDERS: Other Orders: 1. Take a regular diet as tolerated. 2. Keep incisions clean and dry. May shower. Avoid tub baths and swimming for 2 weeks. Use mild soap and pat dry the incisions. 3. Take medications as needed for pain. 4. Call the surgeon or go to the nearest ER if you have severe abdominal pain despite pain medications. 5. Call the surgeon or go to the nearest ER if you notice any bleeding or secretions coming out of the incision sites. Also call the surgeon if you notice any blood in stool, if you have persistent fevers, or any other unusual signs or symptoms. 6. Follow-up with the surgeon [Dr. Conrad] in 7 days for incision check. 7. Avoid heavy lifting [more than 10-15 pounds] for 4 weeks. 8. Please follow-up Dr. Russ in 3 months for stent removal. RENNY KOWALSKI NP Apr 01, 2019 11:41
[2019-04-01] MEDS ORDERED: HYDR-4011 PO (11:42)
[2019-04-01] MEDS ORDERED: DOCU-144 PO (11:42)
--- NOTE | 2019-04-01 11:58 | CONS ---
Assessment/Plan Assessment/Plan Assessment/Plan (Daily) Assessment/Plan Assessment/Plan (Daily) IMPRESSION: 1. Biliary obstruction. Status post sphincterotomy removal of the stone and placement of stent 2. Abnormal LFT. 3. Gallstone status post laparoscopic cholecystectomy Plan Continue postoperative care We will remove the stent after 3 months Discussed with the patient and has agreed to come to the office Consultation Date/Type/Reason Admit Date/Time Mar 29, 2019 at 19:06 Initial Consult Date 03/31/19 Date/Time of Note DATE: 04/01/19 TIME: 11:58 24 HR Interval Summary Constitutional: no complaints, improved Exam/Review of Systems Exam Vitals Vital Signs Date Temp Pulse Resp B/P (MAP) Pulse Ox O2 O2 Flow FiO2 Time Delivery Rate 04/01/19 98.6 80 16 105/57 96 Room Air 07:21 (73) Intake and Output 03/31/19 03/31/19 04/01/19 1515:00 23:00 07:00 IntakeIntake Total 1350 ml 1350 ml 1350 ml OutputOutput Total 605 ml 900 ml BalanceBalance 1350 ml 745 ml 450 ml Constitutional: alert, oriented, well developed Psych: no complaints, nl mood/affect Head: normocephalic, atraumatic Eyes: nl conjunctiva, EOMI, nl lids, nl sclera, PERRL ENMT: nl external ears & nose, nl lips & teeth, nl nasal mucosa & septum Neck: supple, non-tender Respiratory: clear to auscultation, normal air movement Cardiovascular: regular rate and rhythm, nl pulses Gastrointestinal: soft, nl liver, spleen, non-tender Musculoskeletal: nl extremities to inspection, nl gait and stance Extremities: normal pulses Neurological: LIFE AGENT II-XII intact, nl mental status, nl speech, nl strength Skin: nl turgor; No rash or lesions Lymph: nl lymph nodes Results Result Diagram: 04/01/1952604/01/19526 Results 24hrs Laboratory Tests Test 04/01/19 05:27 White Blood Count 7.7 Red Blood Count 4.29 Hemoglobin 11.3 L Hematocrit 35.3 L Mean Corpuscular Volume 82.3 Mean Corpuscular Hemoglobin 26.3 L Mean Corpuscular Hemoglobin Concent 32.0 Red Cell Distribution Width 15.1 H Platelet Count 275 Mean Platelet Volume 10.9 H Immature Granulocytes % 0.300 Neutrophils % 60.7 Lymphocytes % 26.5 Monocytes % 8.0 Eosinophils % 3.8 Basophils % 0.7 Nucleated Red Blood Cells % 0.0 Immature Granulocytes # 0.020 Neutrophils # 4.7 Lymphocytes # 2.0 Monocytes # 0.6 Eosinophils # 0.3 Basophils # 0.1 Nucleated Red Blood Cells # 0.0 Sodium Level 142 Potassium Level 3.9 Chloride Level 106 Carbon Dioxide Level 28 Anion Gap 8 Blood Urea Nitrogen 4 L Creatinine 0.56 Est Glomerular Filtrat Rate mL/min > 60 Glucose Level 103 Calcium Level 9.3 Phosphorus Level 3.8 Magnesium Level 1.7 Total Bilirubin 0.5 Direct Bilirubin 0.00 Indirect Bilirubin 0.5 Aspartate Amino Transf (AST/SGOT) 45 Alanine Aminotransferase (ALT/SGPT) 180 H Alkaline Phosphatase 102 Total Protein 6.9 Albumin 3.6 Globulin 3.30 H Albumin/Globulin Ratio 1.09 Medications Medication Current Medications IV Flush (NS 3 ml) 3 ml PER PROTOCOL IV ; Start 03/29/19 at 20:00 Ondansetron HCl (Zofran Inj) 4 mg Q6H PRN IV NAUSEA/VOMITING; Start 03/29/19 at 20:00 Acetaminophen (Tylenol Tab) 650 mg Q6H PRN PO .PAIN 1-3 OR TEMP; Start 03/29/19 at 20:00 Hydromorphone HCl (Dilaudid) 0.5 mg Q4H PRN IV .SEVERE PAIN 7-10 Last administered on 03/31/19at 23:51; Admin Dose 0.5 MG; Start 03/29/19 at 20:00 Docusate Sodium (Colace) 100 mg Q12H PRN PO .CONSTIPATION; Start 03/29/19 at 20:00 Bisacodyl (Dulcolax) 5 mg DAILY PRN PO .CONSTIPATION; Start 03/29/19 at 20:00 Piperacillin Sod/ Tazobactam Sod 100 ml @ 200 mls/hr Q6 IVPB Last administered on 04/01/19at 11:47; Admin Dose 200 MLS/HR; Start 03/29/19 at 21:00 Famotidine (Pepcid) 20 mg BID PO Last administered on 04/01/19at 08:38; Admin Dose 20 MG; Start 03/30/19 at 09:00 Metoclopramide HCl (Reglan) 10 mg Q6H PRN IV NAUSEA AND/OR VOMITING; Start 03/31/19 at 16:00 Ketorolac Tromethamine (Toradol) 30 mg Q6H PRN IV PAIN; Start 03/31/19 at 16:00; Stop 04/03/19 at 15:59 Morphine Sulfate (morphine) 2 mg Q2H PRN IV BREAKTHROUGH PAIN; Start 03/31/19 at 16:00 Ibuprofen (Motrin) 600 mg Q6H PRN PO PAIN LEVEL 1-5; Start 04/01/19 at 16:00 Acetaminophen/ Hydrocodone Bitart ([place] (5/325)) 1 tab Q6H PRN PO PAIN LEVEL 6-10 Last administered on 04/01/19at 11:47; Admin Dose 1 TAB; Start 03/31/19 at 16:00 Diphenhydramine HCl (Benadryl) 25 mg Q6H PRN IV PRURITUS; Start 03/31/19 at 16:00 Potassium Chloride/Dextrose/ Sod Cl 1,000 ml @ 100 mls/hr Q10H IV Last administered on 04/01/19at 05:19; Admin Dose 100 MLS/HR; Start 03/31/19 at 15:57 KENNY AGUIRRE MD Apr 01, 2019 11:58
[2019-04-01] MEDS ORDERED: Work Note (12:00)
--- NOTE | 2019-04-01 12:07 | DS ---
Date/Time of Note Date/Time of Note DATE: 04/01/19 TIME: 12:04 Discharge Summary Admission/Discharge Info Admit Date/Time Mar 29, 2019 at 19:06 Discharge Date/Time Discharge Diagnosis 1. Symptomatic cholelithiasis; choledocholithiasis. Status post ERCP, sphincterotomy, removal of stone, and placement of stent on 03/30/2019. Status post laparoscopic cholecystectomy on 03/31/2019. 2. Transaminitis w/o hyperbilirubinemia. 3. Obesity. BMI more than 31kg/m. Patient Condition: Stable Consults 1. Karsten Conrad MD, General Surgery. 2. Jim Russ MD, Gastroenterology. Procedures G.I. LAB PROCEDURE DATE OF PROCEDURE: 03/30/2019 PROCEDURE: 1. ERCP. 2. Sphincterotomy. 3. Removal of stone. 4. Injection of epinephrine. 5. Placement of stent. INDICATION: A 19-year-old female undergoing this procedure for impacted stone in ampulla. Bilirubin was high, started coming down after giving her antibiotic, continues to have right upper quadrant colicky pain. MRCP showed a stone in the ampullary area. The risk of the procedure, related and unrelated complications, anesthetic risks, alternatives discussed. Informed consent was obtained. Hx of Present Illness This is a 19-year-old female with no significant comorbidities other than obesity who presented to an outside facility with chief complaint of abdominal pain with evidence of cholelithiasis and was transferred to [facility] for further treatment and evaluation because of insurance reasons. Hospital Course The patient was admitted to inpatient setting. She was kept n.p.o. A gastroenterology and general surgery consult was obtained. She was started on empiric antimicrobials including anaerobes for any possible underlying cholangitis and cholecystitis. The patient was taken to the OR and the patient underwent an ERCP with sphincterotomy, removal of stone and placement of a stent on 03/30/2019. The patient was taken to the OR on 03/31/2019 and the patient underwent a laparoscopic cholecystectomy. Status post lap cholecystectomy, the patient was started on a clear liquid diet and the patient's diet was advanced as tolerated to a regular consistency diet without any significant ga strointestinal symptoms. The patient was encouraged on frequent ambulation and frequent use of incentive spirometry. The patient was able to tolerate oral intake and she started passing gas. The patient was cleared by general surgery to be discharged home. The patient is a relatively healthy female with no other significant comorbidities. The patient was noticed to be obese with a BMI of more than 31 kg/m. The patient's fasting lipid panel and hemoglobin A1c was satisfactory. The patient was advised on lifestyle modifications for weight reduction. The patient had a stable hospital course. The patient is stable to be discharged home, to be followed up with outpatient general surgery and gastroenterology. Discharge Instructions 1. Take a regular diet as tolerated. 2. Keep incisions clean and dry. May shower. Avoid tub baths and swimming for 2 weeks. Use mild soap and pat dry the incisions. 3. Take medications as needed for pain. 4. Call the surgeon or go to the nearest ER if you have severe abdominal pain despite pain medications. 5. Call the surgeon or go to the nearest ER if you notice any bleeding or s ecretions coming out of the incision sites. Also call the surgeon if you notice any blood in stool, if you have persistent fevers, or any other unusual signs or symptoms. 6. Follow-up with the surgeon [Dr. Conrad] in 7 days for incision check. 7. Avoid heavy lifting [more than 10-15 pounds] for 4 weeks. 8. Please follow-up Dr. Russ in 3 months for stent removal. The patient verbalized understanding of her discharge instructions. At this time I would like to thank all the consultants for seeing the patient, doing the necessary procedures, and providing clinical recommendations. The patient was seen in collaboration with Dr. Munguia. [facility] [employer] [Work Note] No Conflict Check This is to certify that this patient was hospitalized at [facility] from 03/29/2019 to 04/01/2019. She may return back to work on 04/04/2019 with restriction of no heavy lifting more than 10 to 15 pounds until 04/28/2019. Prov:RENNY KOWALSKI NP 04/01/19 Docusate Sodium* (Colace*) 100 Mg Capsule, 100 MG PO BID, #10 CAP Prov:RENNY KOWALSKI NP 04/01/19 Hydrocodone/Acetaminophen ([place] 5-325 Tablet) 1 Each Tablet, 1 EACH PO Q6H for Pain, #6 TAB Prov:RENNY KOWALSKI NP 04/01/19 Follow-up Plan 1. Karsten Conrad MD Specialty: General Surgery Office Address [address] [place] [address] Office 2. Jim Russ MD Specialty: Gastroenterology Office Address [address] [place] [address] Office Primary Care Provider Not On Staff Doctor Time spent on discharge: > 30 minutes Pending Labs Laboratory Tests Test 04/01/19 05:27 White Blood Count 7.7 10^3/ul (4.8-10.8) Red Blood Count 4.29 10^6/ul (4.20-5.40) Hemoglobin 11.3 g/dl (12.0-16.0) Hematocrit 35.3 % (37.0-47.0) Mean Corpuscular Volume 82.3 fl (72.0-104.0) Mean Corpuscular Hemoglobin 26.3 pg (29.0-33.0) Mean Corpuscular Hemoglobin Concent 32.0 g/dl (32.0-37.0) Red Cell Distribution Width 15.1 % (11.5-14.5) Platelet Count 275 10^3/UL (140-415) Mean Platelet Volume 10.9 fl (7.4-10.4) Immature Granulocytes % 0.300 % (0.001-0.429) Neutrophils % 60.7 % (30.0-74.0) Lymphocytes % 26.5 % (18.0-55.0) Monocytes % 8.0 % (0.0-13.0) Eosinophils % 3.8 % (0.0-7.0) Basophils % 0.7 % (0.0-2.0) Nucleated Red Blood Cells % 0.0 /100WBC (0.0-0.0) Immature Granulocytes # 0.020 10^3/ul (0.0-0.031) Neutrophils # 4.7 10^3/ul (1.6-7.5) Lymphocytes # 2.0 10^3/ul (0.8-2.9) Monocytes # 0.6 10^3/ul (0.3-0.9) Eosinophils # 0.3 10^3/ul (0.0-0.5) Basophils # 0.1 10^3/ul (0.0-0.1) Nucleated Red Blood Cells # 0.0 10^3/ul (0.0-0.0) Sodium Level 142 mmol/L (135-144) Potassium Level 3.9 mmol/L (3.5-5.1) Chloride Level 106 mmol/L (97-110) Carbon Dioxide Level 28 mmol/L (21-31) Anion Gap 8 (5-13) Blood Urea Nitrogen 4 mg/dl (7-20) Creatinine 0.56 mg/dl (0.44-1.00) Est Glomerular Filtrat Rate mL/min > 60 mL/min (>60) Glucose Level 103 mg/dl (70-220) Calcium Level 9.3 mg/dl (8.4-10.2) Phosphorus Level 3.8 mg/dl (2.5-4.9) Magnesium Level 1.7 mg/dl (1.7-2.5) Total Bilirubin 0.5 mg/dl (0.2-1.3) Direct Bilirubin 0.00 mg/dl (0.00-0.20) Indirect Bilirubin 0.5 mg/dl (0-1.1) Aspartate Amino Transf (AST/SGOT) 45 IU/L (15-46) Alanine Aminotransferase (ALT/SGPT) 180 IU/L (13-69) Alkaline Phosphatase 102 IU/L (42-121) Total Protein 6.9 g/dl (6.1-8.1) Albumin 3.6 g/dl (3.3-4.9) Globulin 3.30 g/dl (1.3-3.2) Albumin/Globulin Ratio 1.09 RENNY KOWALSKI NP Apr 01, 2019 12:07
[2019-04-01] MEDS ORDERED: IBUPROFEN 600 MG TAB PO PRN (16:00)
== END 2019-04-01 13:36 | disposition home or self-care (01) | DRG 418 ==
LOC: TEL 19:06 → EDBD 19:06 → PP2 03-30 12:06
PROVIDERS: ADMIT Internal Medicine; ATTEND Internal Medicine
PROC: 0FCC8ZZ Extirpation of Matter from Ampulla of Vater, Via Natural or Artificial Opening Endoscopic (ICD-10-PCS; 2019-03-30)
PROC: 0F798DZ Dilation of Common Bile Duct with Intraluminal Device, Via Natural or Artificial Opening Endoscopic (ICD-10-PCS; 2019-03-30)
PROC: 0W3P8ZZ Control Bleeding in Gastrointestinal Tract, Via Natural or Artificial Opening Endoscopic (ICD-10-PCS; 2019-03-30)
PROC: BF13YZZ Fluoroscopy of Gallbladder and Bile Ducts using Other Contrast (ICD-10-PCS; 2019-03-31)
PROC: 0FT44ZZ Resection of Gallbladder, Percutaneous Endoscopic Approach (ICD-10-PCS; principal; 2019-03-31 14:30)
DX: K80.65 Calculus of gallbladder and bile duct with chronic cholecystitis with obstruction (principal); K91.71 Accidental puncture and laceration of a digestive system organ or structure during a digestive system procedure; E66.9 Obesity, unspecified; Y83.8 Other surgical procedures as the cause of abnormal reaction of the patient, or of later complication, without mention of misadventure at the time of the procedure; Y92.238 Other place in hospital as the place of occurrence of the external cause
CPT/HCPCS: 74181; 74330; 80053; 80061; 83036; 83735; 84100; 84443; 84703; 85025; 85610; 85730; 88304; C2617; J0171; J1170; J1610; J1885; J2370; J2405; J2543; J2710; J2765; J2795; J3010; J3475; J3480; J7030